=== PATIENT | male | born 1955 | race Caucasian/White ===

== ENCOUNTER 2016-08-25 00:03 | Emergency (ER) | payer OTHER ==
[~2016-08-25] VITALS: Ht 190.5 cm; Wt 90.0 kg
[~2016-08-25 00:03] MED LIST: BACLOFEN10 MG PO; BENAZEPRIL HCL5 MG PO; EFFEXOR75 MG PO; ELIQUIS5 MG PO; ENDOCET 5-3251 EACH PO; LEXAPRO10 MG PO; LOTENSIN5 MG PO; PERCOCET 5/31 TABLET PO
[2016-08-25] MEDS ORDERED: VICODIN 5-3001 EACH PO (01:12)
[2016-08-25] MEDS ORDERED: NORCO 5/3251 TABLET PO (01:15)
[2016-08-25 01:30] VITALS: BP 159/95
== END 2016-08-25 01:31 | disposition home or self-care (01) ==
LOC: EME 00:03
DX: S83.8X2A Sprain of other specified parts of left knee, initial encounter (principal); X58.XXXA Exposure to other specified factors, initial encounter
CPT/HCPCS: 73564; 99281; 99284

== ENCOUNTER 2017-06-04 22:12 | Emergency (ER) | payer OTHER ==
[~2017-06-04] VITALS: Ht 190.5 cm; Wt 97.3 kg
[~2017-06-04 22:12] MED LIST changes: +NORCO 5/3251 TABLET PO; +VICODIN 5-3001 EACH PO
[2017-06-05 00:42] VITALS: BP 141/80
== END 2017-06-05 00:45 | disposition home or self-care (01) ==
LOC: EME 22:12
DX: S83.92XA Sprain of unspecified site of left knee, initial encounter (principal); M25.551 Pain in right hip; Z96.641 Presence of right artificial hip joint; I10 Essential (primary) hypertension; F32.9 Major depressive disorder, single episode, unspecified; G81.91 Hemiplegia, unspecified affecting right dominant side; W19.XXXA Unspecified fall, initial encounter; X50.1XXA Overexertion from prolonged static or awkward postures, initial encounter
CPT/HCPCS: 73521; 73564; 99281; 99285

== ENCOUNTER 2017-07-14 04:10 | Emergency (ER) | payer OTHER ==
[~2017-07-14] VITALS: Ht 190.5 cm; Wt 94.0 kg
[2017-07-14] MEDS ORDERED: KEFLEX500 MG PO (08:47)
[2017-07-14] MEDS ORDERED: PERCOCET 5/31 TABLET PO (08:47)
[2017-07-14 08:58] VITALS: BP 126/58
== END 2017-07-14 09:00 | disposition home or self-care (01) ==
LOC: EME 04:10
DX: S90.31XA Contusion of right foot, initial encounter (principal); L03.115 Cellulitis of right lower limb; W23.0XXA Caught, crushed, jammed, or pinched between moving objects, initial encounter
CPT/HCPCS: 73610; 73630; 99281; 99283

== ENCOUNTER 2017-12-10 03:33 | Emergency (ER) | payer OTHER ==
[~2017-12-10] VITALS: Ht 190.5 cm; Wt 135.0 kg
[~2017-12-10 03:33] MED LIST changes: +KEFLEX500 MG PO
[2017-12-10] MEDS ORDERED: NORCO 5/3251 TABLET PO (05:45)
[2017-12-10 07:19] VITALS: BP 108/60
== END 2017-12-10 07:48 | disposition home or self-care (01) ==
LOC: EME 03:33
DX: S09.90XA Unspecified injury of head, initial encounter (principal); S40.011A Contusion of right shoulder, initial encounter; S30.0XXA Contusion of lower back and pelvis, initial encounter; S70.01XA Contusion of right hip, initial encounter; Y92.009 Unspecified place in unspecified non-institutional (private) residence as the place of occurrence of the external cause; W01.0XXA Fall on same level from slipping, tripping and stumbling without subsequent striking against object, initial encounter; I10 Essential (primary) hypertension; M16.12 Unilateral primary osteoarthritis, left hip; Z96.641 Presence of right artificial hip joint; M51.36 Other intervertebral disc degeneration, lumbar region; Z79.01 Long term (current) use of anticoagulants
CPT/HCPCS: 70450; 72100; 72125; 72220; 73030; 73502; 99281; 99285